=== PATIENT | female | born 1985 | race Two or more races ===

== ENCOUNTER 2024-05-08 08:55 | Day surgery (SDC) | payer OTHER ==
[~2024-05-08] VITALS: Ht 172.7 cm; Wt 75.3 kg
[~2024-05-08 08:55] MED LIST: EQL50TAB2 PO; FLUTISP; IRON65TA2 PO; MULTTAB61 PO; VITA200C21 PO; [UNRECOGNIZED DRUG - CODE] PO; [UNRECOGNIZED DRUG - OTHER]
[2024-05-08] MEDS ORDERED: ROCURONIUM BROMIDE 50MG/5ML VIAL As Ordered ONE (08:58)
[2024-05-08] MEDS ORDERED: propofoL 200 MG/20 ML VIAL As Ordered ONE (08:58)
[2024-05-08] MEDS ORDERED: LIDOCAINE 2% 100MG/5ML SDV (FOR ANES.) As Ordered ONE (08:58)
[2024-05-08] MEDS ORDERED: fentaNYL 100 MCG/2 ML INJECTION As Ordered ONE (08:58)
[2024-05-08] MEDS ORDERED: MIDAZOLAM INJ 2MG/2ML VIAL As Ordered ONE (08:58)
[2024-05-08] MEDS ORDERED: SUGAMMADEX SODIUM 500 MG/5 ML VIAL (BRIDION) As Ordered ONE (08:59)
[2024-05-08] MEDS ORDERED: ACETAMINOPHEN 1000MG/100ML IV BAG As Ordered ONE (08:59)
[2024-05-08] MEDS ORDERED: ONDANSETRON 4MG 2ML VIAL As Ordered ONE (08:59)
[2024-05-08 09:32] LABS: HEMOGLOBIN 9.8 g/dl (12.0-15.5); MEAN CORPUSCULAR HEMOGLOBIN 26.3 pg (27.0-33.0); MEAN CORPUSCULAR HGB CONC 31.6 g/dl (32.0-36.5); MEAN CORPUSCULAR VOLUME 83.3 fl (80.0-96.0); PLATELET COUNT, AUTOMATED 362 10^3/uL (150-450); RED BLOOD COUNT 3.72 10^6/uL (4.00-5.40); WHITE BLOOD COUNT 5.9 10^3/uL (4.0-10.0)
[2024-05-08] MEDS: ceFAZolin SOD 2 GM in IV 1 EA IV ONE (10:10)
[2024-05-08] MEDS ORDERED: LR 1,000 ML IV SCH ×3 (11:45→13:35)
[2024-05-08] MEDS ORDERED: fentaNYL 100 MCG/2 ML INJECTION IV PRN (11:55)
[2024-05-08] MEDS: HYDROMORPHONE HCL 0.5 MG/ 0.5 ML SYRINGE IV PRN (12:11)
[2024-05-08] MEDS: oxyCODONE 5MG TAB PO PRN (12:11)
[2024-05-08] MEDS: ONDANSETRON 4MG 2ML VIAL IV PRN (12:31)
[2024-05-08] MEDS ORDERED: PERCOCET 5MG/325MG TAB PO PRN (13:40)
[2024-05-08 14:51] VITALS: BP 113/60; TEMP 97.6; O2SAT 100
[2024-05-08] MEDS ORDERED: OXYC1TAB23 PO (15:30)
[2024-05-08] MEDS ORDERED: SEVOFLURANE INHAL SOLN 250 ML BTL As Ordered ONE (18:15)
== END 2024-05-08 15:06 | disposition home or self-care (01) ==
LOC: M SDC 08:55
PROVIDERS: ATTEND Specialist
DX: N92.0 Excessive and frequent menstruation with regular cycle (principal); N88.8 Other specified noninflammatory disorders of cervix uteri; N72 Inflammatory disease of cervix uteri; N83.12 Corpus luteum cyst of left ovary; D64.9 Anemia, unspecified; N83.8 Other noninflammatory disorders of ovary, fallopian tube and broad ligament; D25.1 Intramural leiomyoma of uterus; F17.290 Nicotine dependence, other tobacco product, uncomplicated; Z88.6 Allergy status to analgesic agent; Z98.84 Bariatric surgery status; Z98.51 Tubal ligation status
CPT/HCPCS: 36415; 58572; 85027; 86850; 86900; 86901; 88307; J0131; J0665; J0690; J1100; J1171; J2250; J2405; J3010; S2900